=== PATIENT | female | born 1970 | race Caucasian/White ===

== ENCOUNTER 2023-05-23 09:43 | Day surgery (SDC) | payer OTHER ==
[~2023-05-23] VITALS: Ht 144.8 cm; Wt 54.4 kg
[2023-05-23] MEDS ORDERED: fentaNYL citrate 0.05 MG/ML VIAL ONE (12:29)
[2023-05-23] MEDS ORDERED: MIDAZOLAM 5 MG/5 ML VIAL ONE (12:30)
[2023-05-23] MEDS ORDERED: LIDOCAINE 2% 100 MG/5 ML UJET TP ONE (12:30)
== END 2023-05-23 13:25 | disposition home or self-care (01) ==
LOC: MDS 09:43 → MMU 09:46 → MDS 13:25
PROVIDERS: ATTEND Internal Medicine Gastroenterology
DX: Z12.11 Encounter for screening for malignant neoplasm of colon (principal); Z90.49 Acquired absence of other specified parts of digestive tract; Z98.51 Tubal ligation status
CPT/HCPCS: 45378; J3010; J2250